=== PATIENT | female | born 1960 | race Caucasian/White ===

== ENCOUNTER 2017-06-30 21:58 | Emergency (ER) | payer MEDICAID ==
--- NOTE | 2017-06-30 22:53 | EDM.PDOC ---
ED HPI GENERAL MEDICAL PROBLEM - General Chief Complaint: Eye Problems Stated Complaint: RT EYE PROBLEMS, [id number] Time Seen by Provider: 06/30/17 22:49 Source of Information: Reports: Patient History Limitations: Reports: No Limitations - History of Present Illness INITIAL COMMENTS - FREE TEXT/NARRATIVE: c/o few days h/o seeing flashes in right eye and also things starting to look blurred. got really concerned after checking on internet saying it could be retinal detachment - Related Data Allergies Allergy/AdvReac Type Severity Reaction Status Date / Time latex Allergy Unknown ITCHING,SWELLING Verified 06/30/17 22:06 OF LEGS/FEET pollen extracts Allergy Unknown Other Verified 06/30/17 22:06 MOLD Allergy Unknown UNKNOWN Uncoded 06/30/17 22:06 Home Meds: Home Meds Losartan [Cozaar] 25 mg PO BID 11/25/14 [History] Metoprolol Tartrate 25 mg PO BID 01/10/16 [History] Simvastatin [Zocor] 20 mg PO DAILY 01/10/16 [History] Furosemide [Furosemide] 20 mg PO ASDIRECTED 06/30/17 [History] Omeprazole Magnesium [Prilosec Otc] 20 mg PO DAILY 06/30/17 [History] Past Medical History Cardiovascular History: Reports: High Cholesterol, Hypertension Other Cardiovascular History: edema Gastrointestinal History: Reports: Cholelithiasis, Diverticulosis, GERD Other Gastrointestinal History: umbilical hernia Genitourinary History: Reports: Renal Calculus VENEER SANDER History: Reports: Other (See Below) Other OB/BYN History: has ovarian cyst that pt states "MD is watching" - Past Surgical History GI Surgical History: Reports: Hernia Repair/Other Social & Family History - Family History Family Medical History: Noncontributory - Tobacco Use Smoking Status *Q: Never Smoker Second Hand Smoke Exposure: No - Alcohol Use Days Per Week of Alcohol Use: 0 - Recreational Drug Use Recreational Drug Use: No - Living Situation & Occupation Living situation: Reports: Occupation: Disabled ED ROS GENERAL - Review of Systems Review Of Systems: ROS reveals no pertinent complaints other than HPI. ED EXAM GENERAL W FULL EYE - Physical Exam Exam: See Below Exam Limited By: No Limitations General Appearance: Alert, WD/WN, Anxious, Mild Distress, Other (upset distraught) Visual Acuity (R) 20/: 50 Visual Acuity (L) 20/: 30 Eyelids: Bilateral: Normal Appearance Conjunctiva & Sclera: Bilateral: Normal Appearance Cornea Exam: Bilateral: Normal Appearance Extraocular Movements: Bilateral: Intact Pupillary Size: Bilateral: 4 mm Pupillary Reaction: Bilateral: Brisk Anterior Chamber: Bilateral: Normal Appearance Posterior Chamber: Bilateral: Other (pink fundus) Ears: Hearing Grossly Normal Throat/Mouth: Normal Voice, No Airway Compromise Head: Atraumatic Neck: Non-Tender, Full Range of Motion Respiratory/Chest: No Respiratory Distress Cardiovascular: Regular Rate, Rhythm GI/Abdominal: Soft, Non-Tender Neurological: Alert, Oriented, Normal Cognition, Normal Gait, No Motor/Sensory Deficits Psychiatric: Anxious Skin Exam: Warm, Dry, Normal Color Lymphatic: No Adenopathy Course - Vital Signs Last Recorded V/S: Last Vital Signs Temp 35.8 C 06/30/17 22:01 Pulse 86 06/30/17 22:01 Resp 18 06/30/17 22:01 BP 153/103 H 07/01/17 00:11 Pulse Ox 95 06/30/17 22:01 - Orders/Labs/Meds Labs: Laboratory Tests 06/30/17 06/30/17 Range/Units 22:55 22:55 WBC 8.2 (5.0-10.0) 10^3/uL RBC 4.85 (4.2-5.4) 10^6/uL Hgb 14.4 (12.0-16.0) g/dL Hct 43.8 (37.0-47.0) % MCV 90.3 (80-100) fL MCH 29.7 (27.0-34.0) pg MCHC 32.9 L (33.0-35.0) g/dL Plt Count 261 (150-450) 10^3/uL Neut % (Auto) 68.2 (42.2-75.2) % Lymph % (Auto) 23.5 (20.5-50.1) % [place] % (Auto) 6.8 (2-8) % Eos % (Auto) 1.1 (1.0-3.0) % Baso % (Auto) 0.4 (0.0-1.0) % Sodium 140 (135-145) mmol/L Potassium 3.7 (3.6-5.0) mmol/L Chloride 103 (101-111) mmol/L Carbon Dioxide 27.0 (21.0-31.0) mmol/L Anion Gap 13.7 BUN 12 (7-18) mg/dL Creatinine 1.2 (0.6-1.3) mg/dL Est Cr Clr Drug Dosing 55.36 mL/min Estimated GFR (MDRD) 47 BUN/Creatinine Ratio 10.00 Glucose 114 H (74-105) mg/dL Calcium 9.3 (8.4-10.2) mg/dl Total Bilirubin 0.4 (0.2-1.0) mg/dL AST 19 (10-42) IU/L ALT 27 (10-60) IU/L Alkaline Phosphatase 98 (42-121) IU/L Total Protein 7.7 (6.7-8.2) g/dl Albumin 3.8 (3.2-5.5) g/dl Globulin 3.9 Albumin/Globulin Ratio 0.97 Meds: Medications Discontinued Medications Generic Name Dose Route Start Last Admin Trade Name Freq PRN Reason Stop Dose Admin Clonidine HCl 0.1 mg 07/01/17 00:02 07/01/17 00:11 Catapres PO 07/01/17 00:03 0.1 mg ONETIME ONE Administration - Re-Assessments/Exams Free Text/Narrative Re-Assessment/Exam: 07/01/17 00:03 results discussed with pt who states she has been stressed out all day with having to put in a new kitchen floor. 07/01/17 00:38 ree-exam; s/p catapress = much better Departure - Departure Time of Disposition: 00:38 Disposition: Home, Self-Care 01 Clinical Impression: Hypertension Qualifiers: Hypertension type: unspecified Qualified Code(s): I10 - Essential (primary) hypertension - Discharge Information Instructions: Hypertension, [id number] Forms: ED Department Discharge Additional Instructions: 1) see Trina tomorrow 2) see EYE CLINIC tomorrow
[2017-07-01] MEDS ORDERED: cloNIDine 0.1 MG Tab PO ONE (00:02)
[2017-07-01 00:12] VITALS: BP 153/103
== END 2017-07-01 00:44 | disposition home or self-care (01) ==
LOC: DL.ED 21:58
DX: I10 Essential (primary) hypertension (principal); E78.00 Pure hypercholesterolemia, unspecified; Z91.040 Latex allergy status; Z79.899 Other long term (current) drug therapy
CPT/HCPCS: 36415; 70450; 80053; 85025; 99284; A9270

== ENCOUNTER 2018-11-01 00:46 | Emergency (ER) | payer MEDICARE, MEDICAID ==
[2018-11-01] MEDS ORDERED: Ondansetron 4 MG Tab.DIS PO ONE (01:01)
--- NOTE | 2018-11-01 01:04 | EDM.PDOC ---
ED HPI GENERAL MEDICAL PROBLEM - General Chief Complaint: Gastrointestinal Problem Stated Complaint: GALLBLADDER ATTACK [id number] Time Seen by Provider: 11/01/18 01:02 Source of Information: Reports: Patient History Limitations: Reports: No Limitations - History of Present Illness INITIAL COMMENTS - FREE TEXT/NARRATIVE: states has GB issues and been eating everything she shouldn't all day, then few hours ago started pain & nausea, no vomiting. pain better presently. Upper Abdomen Pain Score (Numeric/FACES): 7 - Related Data Allergies Allergy/AdvReac Type Severity Reaction Status Date / Time latex Allergy Unknown ITCHING,SWELLING Verified 11/01/18 01:01 OF LEGS/FEET pollen extracts Allergy Unknown Other Verified 11/01/18 01:01 MOLD Allergy Unknown UNKNOWN Uncoded 06/30/17 22:06 Home Meds: Home Meds Losartan [Cozaar] 25 mg PO BID 11/25/14 [History] Metoprolol Tartrate 25 mg PO BID 01/10/16 [History] Simvastatin [Zocor] 20 mg PO WEEKLY 01/10/16 [History] Furosemide 20 mg PO DAILY 06/30/17 [History] Omeprazole Magnesium [Prilosec Otc] 20 mg PO DAILY 06/30/17 [History] Calcitriol 0.25 mg PO DAILY 11/01/18 [History] Cetirizine [ZyrTEC] 10 mg PO DAILY 11/01/18 [History] Past Medical History Cardiovascular History: Reports: High Cholesterol, Hypertension Other Cardiovascular History: edema Gastrointestinal History: Reports: Cholelithiasis, Diverticulosis, GERD Other Gastrointestinal History: umbilical hernia Genitourinary History: Reports: Renal Calculus INDEPENDENT DISTRIBUTOR History: Reports: Other (See Below) Other INDEPENDENT DISTRIBUTOR History: has ovarian cyst that pt states "MD is watching" - Past Surgical History GI Surgical History: Reports: Hernia Repair/Other Social & Family History - Family History Family Medical History: Noncontributory - Living Situation & Occupation Living situation: Reports: Occupation: Disabled ED ROS GENERAL - Review of Systems Review Of Systems: ROS reveals no pertinent complaints other than HPI. ED EXAM, GI/ABD - Physical Exam Exam: See Below Exam Limited By: No Limitations General Appearance: Alert, WD/WN, Mild Distress, Other (discomfort). No: Active Emesis Ears: Hearing Grossly Normal Throat/Mouth: Normal Voice, No Airway Compromise Head: Atraumatic Neck: Non-Tender, Full Range of Motion Respiratory/Chest: No Respiratory Distress Cardiovascular: Regular Rate, Rhythm GI/Abdominal Exam: Tender, Other (mild RUQ). No: Distended, Guarding, Rigid, Rebound (Female) Exam: Normal External Exam (RUQ discomfort, BS hyper) Neurological: Alert, Oriented, Normal Cognition, Normal Gait, No Motor/Sensory Deficits Psychiatric: Flat Affect Skin Exam: Warm, Dry, Normal Color Lymphatic: No Adenopathy Course - Vital Signs Last Recorded V/S: Last Vital Signs Temp 35.8 C 11/01/18 01:09 Pulse 90 11/01/18 01:09 Resp 20 11/01/18 01:09 BP 163/115 H 11/01/18 01:09 Pulse Ox 98 11/01/18 01:09 - Orders/Labs/Meds Labs: Laboratory Tests 11/01/18 11/01/18 Range/Units 01:10 01:10 WBC 12.0 H (5.0-10.0) 10^3/uL RBC 4.50 (4.2-5.4) 10^6/uL Hgb 13.4 (12.0-16.0) g/dL Hct 41.2 (37.0-47.0) % MCV 91.6 (80-100) fL MCH 29.8 (27.0-34.0) pg MCHC 32.5 L (33.0-35.0) g/dL Plt Count 253 (150-450) 10^3/uL Neut % (Auto) 83.7 H (42.2-75.2) % Lymph % (Auto) 9.8 L (20.5-50.1) % [place] % (Auto) 5.8 (2-8) % Eos % (Auto) 0.4 L (1.0-3.0) % Baso % (Auto) 0.3 (0.0-1.0) % Sodium 140 (135-145) mmol/L Potassium 4.0 (3.6-5.0) mmol/L Chloride 106 (101-111) mmol/L Carbon Dioxide 23.0 (21.0-31.0) mmol/L Anion Gap 15.0 BUN 11 (7-18) mg/dL Creatinine 1.1 (0.6-1.3) mg/dL Est Cr Clr Drug Dosing 58.97 mL/min Estimated GFR (MDRD) 51 BUN/Creatinine Ratio 10.00 Glucose 133 H (74-105) mg/dL Calcium 9.0 (8.4-10.2) mg/dl Total Bilirubin 0.4 (0.2-1.0) mg/dL AST 24 (10-42) IU/L ALT 34 (10-60) IU/L Alkaline Phosphatase 94 (42-121) IU/L Total Protein 7.5 (6.7-8.2) g/dl Albumin 3.6 (3.2-5.5) g/dl Globulin 3.9 Albumin/Globulin Ratio 0.92 Amylase 37 (28-100) U/L Lipase 43 (22-51) U/L Meds: Medications Discontinued Medications Generic Name Dose Route Start Last Admin Trade Name Freq PRN Reason Stop Dose Admin Ondansetron HCl 4 mg 11/01/18 01:01 11/01/18 01:06 Zofran Odt PO 11/01/18 01:02 4 mg ONETIME ONE Administration - Re-Assessments/Exams Free Text/Narrative Re-Assessment/Exam: 11/01/18 01:55 results discussed with pt who states did see surgeon who rec' loosing weight first to decrease complications. Departure - Departure Time of Disposition: 01:56 Disposition: Home, Self-Care 01 Condition: Good Clinical Impression: Cholelithiasis without obstruction - Discharge Information Forms: ED Department Discharge Additional Instructions: 1) avoid fatty, oily, fried foods 2) follow up at clinic
[2018-11-01 01:13] VITALS: BP 163/115
== END 2018-11-01 02:03 | disposition home or self-care (01) ==
LOC: DL.ED 00:46
DX: K80.20 Calculus of gallbladder without cholecystitis without obstruction (principal); K21.9 Gastro-esophageal reflux disease without esophagitis; I10 Essential (primary) hypertension; Z91.040 Latex allergy status; Z88.8 Allergy status to other drugs, medicaments and biological substances; Z79.899 Other long term (current) drug therapy
CPT/HCPCS: 36415; 80053; 82150; 83690; 85025; 99283; A9270

== ENCOUNTER 2019-06-12 05:06 | Emergency (ER) | payer MEDICARE, MEDICAID ==
[2019-06-12 05:19] VITALS: BP 143/102; PULSE 129
[2019-06-12] MEDS ORDERED: Ondansetron 4 MG/2 ML SDV IV ONE (05:21)
[2019-06-12] MEDS ORDERED: Sodium Chloride 0.9% 1,000 ML IV ONE (05:21)
--- NOTE | 2019-06-12 05:25 | EDM.PDOC ---
ED HPI GENERAL MEDICAL PROBLEM - General Chief Complaint: Gastrointestinal Problem Stated Complaint: FLU Time Seen by Provider: 06/12/19 05:22 Source of Information: Reports: Patient History Limitations: Reports: No Limitations - History of Present Illness INITIAL COMMENTS - FREE TEXT/NARRATIVE: c/o vomiting diarrhoea body aches and feels hot. - Related Data Allergies Allergy/AdvReac Type Severity Reaction Status Date / Time latex Allergy Unknown ITCHING,SWELLING Verified 06/12/19 05:10 OF LEGS/FEET pollen extracts Allergy Unknown Other Verified 06/12/19 05:10 MOLD Allergy Unknown UNKNOWN Uncoded 06/12/19 05:10 Home Meds: Home Meds Losartan [Cozaar] 25 mg PO BID 11/25/14 [History] Metoprolol Tartrate 25 mg PO BID 01/10/16 [History] Simvastatin [Zocor] 20 mg PO WEEKLY 01/10/16 [History] Furosemide 20 mg PO DAILY 06/30/17 [History] Omeprazole Magnesium [Prilosec Otc] 20 mg PO DAILY 06/30/17 [History] Cetirizine [ZyrTEC] 10 mg PO DAILY 11/01/18 [History] calcitrioL [Calcitriol] 0.25 mg PO DAILY 11/01/18 [History] Past Medical History - Past Health History Medical/Surgical History: Denies Medical/Surgical History Cardiovascular History: Reports: High Cholesterol, Hypertension Other Cardiovascular History: edema Gastrointestinal History: Reports: Cholelithiasis, Diverticulosis, GERD Other Gastrointestinal History: umbilical hernia Genitourinary History: Reports: Renal Calculus, Renal Disease Other Genitourinary History: Stage III SPECIALTY DEPARTMENT SUPERVISOR History: Reports: Other (See Below) Other SPECIALTY DEPARTMENT SUPERVISOR History: has ovarian cyst that pt states "MD is watching" Endocrine/Metabolic History: Reports: Obesity/BMI 30+ - Past Surgical History GI Surgical History: Reports: Hernia Repair/Other Social & Family History - Family History Family Medical History: Noncontributory - Tobacco Use Smoking Status *Q: Never Smoker Second Hand Smoke Exposure: No - Caffeine Use Caffeine Use: Reports: Coffee, Soda - Recreational Drug Use Recreational Drug Use: No - Living Situation & Occupation Living situation: Reports: Occupation: Disabled ED ROS GENERAL - Review of Systems Review Of Systems: Comprehensive ROS is negative, except as noted in HPI. ED EXAM, GI/ABD - Physical Exam Exam: See Below Exam Limited By: No Limitations General Appearance: Alert, WD/WN, Mild Distress, Other (discomfort). No: Active Emesis Ears: Hearing Grossly Normal Throat/Mouth: Normal Voice, No Airway Compromise Head: Atraumatic Neck: Non-Tender, Full Range of Motion Respiratory/Chest: No Respiratory Distress Cardiovascular: Regular Rate, Rhythm GI/Abdominal Exam: Tender, Other (epiG region, BS hyper). No: Distended, Guarding, Rigid, Rebound Neurological: Alert, Oriented, Normal Cognition, Normal Gait, No Motor/Sensory Deficits Psychiatric: Flat Affect, Tearful Skin Exam: Warm, Dry, Normal Color Lymphatic: No Adenopathy Course - Vital Signs Last Recorded V/S: Last Vital Signs Temp 35.9 C 06/12/19 05:13 Pulse 129 H 06/12/19 05:13 Resp 16 06/12/19 05:13 BP 143/102 H 06/12/19 05:13 Pulse Ox 95 06/12/19 05:13 - Orders/Labs/Meds Labs: Laboratory Tests 06/12/19 06/12/19 Range/Units 05:20 05:20 WBC 14.9 H (5.0-10.0) 10^3/uL RBC 5.30 (4.2-5.4) 10^6/uL Hgb 15.6 D (12.0-16.0) g/dL Hct 47.2 H (37.0-47.0) % MCV 89.1 (80-100) fL MCH 29.4 (27.0-34.0) pg MCHC 33.1 (33.0-35.0) g/dL Plt Count 290 (150-450) 10^3/uL Neut % (Auto) 91.9 H (42.2-75.2) % Lymph % (Auto) 2.9 L (20.5-50.1) % [place] % (Auto) 4.8 (2-8) % Eos % (Auto) 0.3 L (1.0-3.0) % Baso % (Auto) 0.1 (0.0-1.0) % Sodium 138 (135-145) mmol/L Potassium 4.0 (3.6-5.0) mmol/L Chloride 106 (101-111) mmol/L Carbon Dioxide 21.0 (21.0-31.0) mmol/L Anion Gap 15.0 BUN 17 (7-18) mg/dL Creatinine 1.2 (0.6-1.3) mg/dL Est Cr Clr Drug Dosing 54.05 mL/min Estimated GFR (MDRD) 46 BUN/Creatinine Ratio 14.16 Glucose 154 H (74-105) mg/dL Calcium 9.0 (8.4-10.2) mg/dl Total Bilirubin 0.8 (0.2-1.0) mg/dL AST 23 (10-42) IU/L ALT 31 (10-60) IU/L Alkaline Phosphatase 88 (42-121) IU/L Total Protein 8.1 (6.7-8.2) g/dl Albumin 3.9 (3.2-5.5) g/dl Globulin 4.2 Albumin/Globulin Ratio 0.93 Meds: Medications Discontinued Medications Generic Name Dose Route Start Last Admin Trade Name Freq PRN Reason Stop Dose Admin Acetaminophen 650 mg 06/12/19 06:04 06/12/19 06:08 Tylenol PO 06/12/19 06:05 650 mg NOW ONE Administration Sodium Chloride 1,000 mls @ 999 mls/hr 06/12/19 05:21 06/12/19 05:27 Normal Saline IV 06/12/19 06:21 999 mls/hr .BOLUS ONE Administration Ondansetron HCl 4 mg 06/12/19 05:21 06/12/19 05:28 Zofran IV 06/12/19 05:22 4 mg ONETIME ONE Administration - Re-Assessments/Exams Free Text/Narrative Re-Assessment/Exam: 06/12/19 06:05 results discussed with pt who is feeling better s/p IV Departure - Departure Time of Disposition: 06:30 Disposition: Home, Self-Care 01 Condition: Good Clinical Impression: Flu syndrome - Discharge Information Instructions: Influenza, Adult, [id number] Forms: ED Department Discharge Additional Instructions: 1) rest as much as possible 2) drink lots of liquids 3) take tylenol for fever and body aches 4) follow up at clinic Sepsis Event Note - Evaluation Sepsis Screening Result: No Definite Risk - Focused Exam Date Exam was Performed: 06/12/19 Time Exam was Performed: 19:14
[2019-06-12] MEDS ORDERED: Acetaminophen 325 MG Tab PO ONE (06:04)
== END 2019-06-12 06:30 | disposition home or self-care (01) ==
LOC: DL.ED 05:06
DX: J11.1 Influenza due to unidentified influenza virus with other respiratory manifestations (principal)
CPT/HCPCS: 36415; 80053; 85025; 87804; 96361; 96374; 99284; A9270; J2405; J7030

== ENCOUNTER 2020-10-11 05:25 | Emergency (ER) | payer MEDICARE, MEDICAID ==
[2020-10-11 05:42] VITALS: BP 168/127; PULSE 131
[2020-10-11] MEDS ORDERED: Sodium Chloride 0.9% 1,000 ML IV ONE (05:51)
[2020-10-11] MEDS ORDERED: Ondansetron 4 MG/2 ML SDV IVPUSH ONE (05:51)
[2020-10-11 06:10] LABS: ANION GAP 17.6 mEq/L (7-13)
--- NOTE | 2020-10-11 06:42 | EDM.PDOC ---
<Radha Agrawal - Last Filed: 10/11/20 06:49> ED HPI GENERAL MEDICAL PROBLEM - General Chief Complaint: Gastrointestinal Problem Stated Complaint: NAUSEA,VOMITING Time Seen by Provider: 10/11/20 06:00 Source of Information: Reports: Patient, RN History Limitations: Reports: No Limitations - History of Present Illness INITIAL COMMENTS - FREE TEXT/NARRATIVE: ED with c/o Nausea vomiting and diarrhea since last mauricio, emesis x 1 dry heave, and 5-10 loose watery stools, abdominal cramping. No fever or chills Abdomen Pain Score (Numeric/FACES): 6 - Related Data Allergies Allergy/AdvReac Type Severity Reaction Status Date / Time latex Allergy Unknown ITCHING,SWELLING Verified 10/11/20 05:43 OF LEGS/FEET pollen extracts Allergy Unknown Other Verified 10/11/20 05:43 MOLD Allergy Unknown UNKNOWN Uncoded 10/11/20 05:43 Home Meds: Home Meds Losartan [Cozaar] 25 mg PO BID 11/25/14 [History] Metoprolol Tartrate 25 mg PO BID 01/10/16 [History] Simvastatin [Zocor] 20 mg PO WEEKLY 01/10/16 [History] Furosemide 20 mg PO DAILY 06/30/17 [History] Omeprazole Magnesium [Prilosec Otc] 20 mg PO DAILY 06/30/17 [History] Cetirizine [ZyrTEC] 10 mg PO DAILY 11/01/18 [History] calcitrioL [Calcitriol] 0.25 mg PO DAILY 11/01/18 [History] Past Medical History - Past Health History Medical/Surgical History: Denies Medical/Surgical History Cardiovascular History: Reports: High Cholesterol, Hypertension Other Cardiovascular History: edema Gastrointestinal History: Reports: Cholelithiasis, Diverticulosis, GERD Other Gastrointestinal History: umbilical hernia Genitourinary History: Reports: Renal Calculus, Renal Disease Other Genitourinary History: Stage III 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: Other (See Below) Other PATHOLOGY LAB TECHNICIAN History: has ovarian cyst that pt states "MD is watching" Endocrine/Metabolic History: Reports: Obesity/BMI 30+ - Past Surgical History GI Surgical History: Reports: Hernia Repair/Other Social & Family History - Family History Family Medical History: No Pertinent Family History - Tobacco Use Tobacco Use Status *Q: Former Tobacco User Used Tobacco, but Quit: Yes Month/Year Tobacco Last Used: on and off,unknown time frame per patient - Caffeine Use Caffeine Use: Reports: Coffee, Soda - Living Situation & Occupation Living situation: Reports: Occupation: Disabled ED ROS GENERAL - Review of Systems Review Of Systems: Comprehensive ROS is negative, except as noted in HPI. ED EXAM, GI/ABD - Physical Exam Exam: See Below Exam Limited By: No Limitations General Appearance: Alert, Mild Distress, Obese (morbid) Eyes: Bilateral: EOMI Ears: Normal External Exam Nose: Normal Inspection Throat/Mouth: Normal Inspection Head: Atraumatic, Normocephalic Neck: Normal Inspection Respiratory/Chest: No Respiratory Distress, Lungs Clear, Normal Breath Sounds Cardiovascular: Regular Rate, Rhythm, Tachycardia GI/Abdominal Exam: Soft, Tender, Abnormal Bowel Sounds (hyperactive) Extremities: Normal Inspection Neurological: Alert, Oriented Psychiatric: Anxious Skin Exam: Warm, Dry, Intact, Pallor #1 Interpretation EKG Date: 10/11/20 Time: 05:54 Rhythm: NSR Rate (Beats/Min): 125 [place]: Normal P-Wave: Present QRS: Normal QT: Normal Comparison: NA - No Prior EKG Departure - Departure Disposition: Home, Self-Care 01 Clinical Impression: Gastroenteritis - Discharge Information Instructions: Viral Gastroenteritis, Adult, Arfp-[id number], Dehydration, Adult, Huec-[id number]-Pzss, Nausea and Vomiting, Adult, Ywhk-[id number], Food Choices to Help Relieve Diarrhea, Adult Forms: ED Department Discharge Additional Instructions: Drink small amounts of gatorade and/or water frequently May use imodium as directed for diarrhea RX: [place] as directed for nausea/vomiting Follow up with your primary care facility next week Sepsis Event Note (ED) - Evaluation Sepsis Screening Result: No Definite Risk <Charlene Hyatt - Last Filed: 10/11/20 09:15> Course - Vital Signs Last Recorded V/S: Last Vital Signs Temp 95.8 F L 10/11/20 05:36 Pulse 131 H 10/11/20 05:36 Resp 20 10/11/20 05:36 BP 168/127 H 10/11/20 05:36 Pulse Ox 98 10/11/20 05:36 - Orders/Labs/Meds Orders: Active Orders 24 hr Category Date Time Status EKG 12 Lead [EKG Documentation Completion] [RC] URGENT Care 10/11/20 05:53 Active CLOSTRIDIUM DIFFICILE TOX RFLX [MREF] Stat Lab 10/11/20 05:46 Ordered CULTURE BLOOD [BC] Stat Lab 10/11/20 06:05 Received CULTURE STOOL [RM] Stat Lab 10/11/20 05:46 Ordered Isolation [COMM] Stat Oth 10/11/20 05:50 Active Labs: Laboratory Tests 10/11/20 10/11/20 10/11/20 Range/Units 05:44 05:44 05:44 WBC 15.1 H (5.0-10.0) 10^3/uL RBC 5.85 H (4.2-5.4) 10^6/uL Hgb 17.1 H D (12.0-16.0) g/dL Hct 51.8 H (37.0-47.0) % MCV 88.5 (80-100) fL MCH 29.2 (27.0-34.0) pg MCHC 33.0 (33.0-35.0) g/dL Plt Count 315 (150-450) 10^3/uL Neut % (Auto) 86.7 H (42.2-75.2) % Lymph % (Auto) 6.4 L (20.5-50.1) % [place] % (Auto) 6.4 (2-8) % Eos % (Auto) 0.3 L (1.0-3.0) % Baso % (Auto) 0.2 (0.0-1.0) % Sodium 137 (136-145) mmol/L Potassium 3.6 (3.5-5.1) mmol/L Chloride 102 (98-107) mmol/L Carbon Dioxide 21 (21-32) mmol/L Anion Gap 17.6 H (7-13) mEq/L BUN 12 (7-18) mg/dL Creatinine 1.52 H (0.55-1.02) mg/dL Est Cr Clr Drug Dosing 42.16 mL/min Estimated GFR (MDRD) 35 BUN/Creatinine Ratio 7.9 (No establ ref range) Glucose 181 H (70-99) mg/dL Lactic Acid 1.8 (0.4-2.0) mmol/L Calcium 9.3 (8.5-10.1) mg/dL Magnesium 1.8 (1.8-2.4) mg/dL Total Bilirubin 0.6 (0.2-1.0) mg/dL AST 16 (15-37) U/L ALT 34 (14-59) U/L Alkaline Phosphatase 113 (46-116) U/L Total Protein 8.4 H (6.4-8.2) g/dL Albumin 3.6 (3.4-5.0) g/dL Globulin 4.8 Albumin/Globulin Ratio 0.8 Amylase 24 L (25-115) U/L Lipase 71 L (73-393) U/L Influenza Type A RNA (NEGATIVE) Influenza Type B RNA (NEGATIVE) SARS-CoV-2 RNA (DAVID) (NEGATIVE) 10/11/20 Range/Units 07:48 WBC (5.0-10.0) 10^3/uL RBC (4.2-5.4) 10^6/uL Hgb (12.0-16.0) g/dL Hct (37.0-47.0) % MCV (80-100) fL MCH (27.0-34.0) pg MCHC (33.0-35.0) g/dL Plt Count (150-450) 10^3/uL Neut % (Auto) (42.2-75.2) % Lymph % (Auto) (20.5-50.1) % [place] % (Auto) (2-8) % Eos % (Auto) (1.0-3.0) % Baso % (Auto) (0.0-1.0) % Sodium (136-145) mmol/L Potassium (3.5-5.1) mmol/L Chloride (98-107) mmol/L Carbon Dioxide (21-32) mmol/L Anion Gap (7-13) mEq/L BUN (7-18) mg/dL Creatinine (0.55-1.02) mg/dL Est Cr Clr Drug Dosing mL/min Estimated GFR (MDRD) BUN/Creatinine Ratio (No establ ref range) Glucose (70-99) mg/dL Lactic Acid (0.4-2.0) mmol/L Calcium (8.5-10.1) mg/dL Magnesium (1.8-2.4) mg/dL Total Bilirubin (0.2-1.0) mg/dL AST (15-37) U/L ALT (14-59) U/L Alkaline Phosphatase (46-116) U/L Total Protein (6.4-8.2) g/dL Albumin (3.4-5.0) g/dL Globulin Albumin/Globulin Ratio Amylase (25-115) U/L Lipase (73-393) U/L Influenza Type A RNA Negative (NEGATIVE) Influenza Type B RNA Negative (NEGATIVE) SARS-CoV-2 RNA (DAVID) Negative (NEGATIVE) Meds: Medications Discontinued Medications Generic Name Dose Route Start Last Admin Trade Name Freq PRN Reason Stop Dose Admin Sodium Chloride 1,000 mls @ 500 mls/hr 10/11/20 05:51 10/11/20 06:28 Normal Saline IV 10/11/20 07:50 500 mls/hr .BOLUS ONE Administration Ondansetron HCl 4 mg 10/11/20 05:51 10/11/20 06:28 Ondansetron 4 Mg/2 Ml Sdv IVPUSH 10/11/20 05:52 4 mg ONETIME ONE Administration Ondansetron HCl 4 mg 10/11/20 09:07 Ondansetron 4 Mg/2 Ml Sdv IV 10/11/20 09:08 ONETIME ONE Departure - Departure Time of Disposition: 09:14 Condition: Fair - Discharge Information *PRESCRIPTION DRUG MONITORING PROGRAM REVIEWED*: No *COPY OF PRESCRIPTION DRUG MONITORING REPORT IN PATIENT DANUTA: No Sepsis Event Note (ED) - Focused Exam Vital Signs: Vital Signs Temp Pulse Resp BP Pulse Ox 10/11/20 05:36 95.8 F L 131 H 20 168/127 H 98
[2020-10-11 08:30] LABS: CORONAVIRUS COVID-19 NAA NEGATIVE (NEGATIVE)
[2020-10-11] MEDS ORDERED: Ondansetron 4 MG/2 ML SDV IV ONE (09:07)
== END 2020-10-11 09:30 | disposition home or self-care (01) ==
LOC: DL.ED 05:25
DX: K52.9 Noninfective gastroenteritis and colitis, unspecified (principal); E78.00 Pure hypercholesterolemia, unspecified; I10 Essential (primary) hypertension; K21.9 Gastro-esophageal reflux disease without esophagitis; E66.9 Obesity, unspecified; Z87.891 Personal history of nicotine dependence; Z91.040 Latex allergy status; Z91.018 Allergy to other foods; Z20.822 Contact with and (suspected) exposure to COVID-19; Z68.42 Body mass index [BMI] 45.0-49.9, adult
CPT/HCPCS: 0240U; 36415; 80053; 82150; 83605; 83690; 83735; 85025; 87040; 93005; 93010; 96374; 96376; 99283; 99284; J2405; J7030

== ENCOUNTER 2023-04-25 17:45 | Emergency (ER) | payer MEDICARE, MEDICAID ==
[2023-04-25 18:51] LABS: INFLUENZA A NAA NEGATIVE (NEGATIVE); INFLUENZA B NAA NEGATIVE (NEGATIVE); RESPIRATORY SYNCYTIAL VIR NAA NEGATIVE (NEGATIVE)
[2023-04-25 18:53] LABS: CORONAVIRUS COVID-19 NAA POSITIVE (NEGATIVE)
[2023-04-25 20:11] VITALS: BP 135/87; PULSE 78
== END 2023-04-25 20:09 | disposition home or self-care (01) ==
LOC: DL.ED 17:45
DX: U07.1 COVID-19 (principal); J12.82 Pneumonia due to coronavirus disease 2019; E66.01 Morbid (severe) obesity due to excess calories; Z28.310 Unvaccinated for COVID-19; I12.9 Hypertensive chronic kidney disease with stage 1 through stage 4 chronic kidney disease, or unspecified chronic kidney disease; N18.30 Chronic kidney disease, stage 3 unspecified; J45.909 Unspecified asthma, uncomplicated; K21.9 Gastro-esophageal reflux disease without esophagitis; Z87.891 Personal history of nicotine dependence; Z79.899 Other long term (current) drug therapy; Z91.040 Latex allergy status; Z91.048 Other nonmedicinal substance allergy status; Z68.43 Body mass index [BMI] 50.0-59.9, adult
CPT/HCPCS: 0241U; 99284

== ENCOUNTER 2025-04-26 06:30 | Day surgery (SDC) | payer MEDICARE, MEDICAID ==
[~2025-04-26 06:30] MED LIST: Ondansetron 4 MG/2 ML SDV IVPUSH PRN
[2025-04-26] MEDS ORDERED: Midazolam 1 MG/ML 2 ML SDV IV ONE (06:31)
[2025-04-26] MEDS ORDERED: Dexamethasone 4 MG/ML SDV IV ONE (06:31)
[2025-04-26] MEDS ORDERED: Sodium Chloride 0.9% 10 ML Syringe IV ONE (06:31)
[2025-04-26] MEDS: Moxifloxacin 0.5% Ophth Soln 3 ML Bottle EYELF ONE (07:17)
[2025-04-26] MEDS: Povidone-Iodine 5% Sterile Ophth Soln 30 ML Bottle EYELF ONE ×2 (07:18→08:29)
[2025-04-26] MEDS: Phenylephrine 10% Ophth Soln 5 ML Bot EYELF ONE (07:19)
[2025-04-26] MEDS: Timolol Maleate 0.5% Ophth Soln 5 ML Bottle EYELF ONE (07:20)
[2025-04-26] MEDS: Cataract Ophth Solution EYELF ONE (07:22)
[2025-04-26] MEDS ORDERED: Dexamethasone 4 MG/ML SDV ONE (08:28)
[2025-04-26] MEDS: Apraclonidine 0.5% Ophth Soln 5 ML Bot EYELF ONE (08:29)
[2025-04-26] MEDS: Dexamethasone/Neomycin/Polymyxin B Ophth Oint 3.5 GM Tube EYELF ONE (08:30)
[2025-04-26] MEDS: Diclofenac Sodium 0.1% Ophth Soln 5 ML Bottle EYELF ONE (08:30)
[2025-04-26 09:07] VITALS: BP 123/89; PULSE 82
== END 2025-04-26 09:15 | disposition home or self-care (01) ==
LOC: DL.SDS 06:30
PROVIDERS: ATTEND Ophthalmology
DX: E11.36 Type 2 diabetes mellitus with diabetic cataract (principal); H25.813 Combined forms of age-related cataract, bilateral; I12.9 Hypertensive chronic kidney disease with stage 1 through stage 4 chronic kidney disease, or unspecified chronic kidney disease; E11.22 Type 2 diabetes mellitus with diabetic chronic kidney disease; N18.9 Chronic kidney disease, unspecified; E66.9 Obesity, unspecified; Z91.09 Other allergy status, other than to drugs and biological substances; Z87.891 Personal history of nicotine dependence; Z79.899 Other long term (current) drug therapy; Z91.040 Latex allergy status; Z68.42 Body mass index [BMI] 45.0-49.9, adult
CPT/HCPCS: A9270-GY; J1100; J2003; J2250; J3373; J3490

== ENCOUNTER → 2025-05-10 | Day surgery (SDC) | payer MEDICARE, MEDICAID ==
[~2025-05-10] MED LIST changes: +Moxifloxacin 0.5% Ophth Soln 3 ML Bottle EYERT ONE
[2025-05-10] MEDS: Povidone-Iodine 5% Sterile Ophth Soln 30 ML Bottle EYERT ONE (07:11)
[2025-05-10] MEDS: Phenylephrine 10% Ophth Soln 5 ML Bot EYERT ONE (07:15)
[2025-05-10] MEDS: Timolol Maleate 0.5% Ophth Soln 5 ML Bottle EYERT ONE (07:16)
[2025-05-10] MEDS: Cataract Ophth Solution EYERT ONE (07:17)
[2025-05-10] MEDS: Moxifloxacin 0.5% Ophth Soln 3 ML Bottle EYERT ONE (07:29)
[2025-05-10 09:18] VITALS: BP 133/79; PULSE 77
== END | disposition home or self-care (01) ==
LOC: DL.SDS 06:20
PROVIDERS: ATTEND Ophthalmology
DX: E11.36 Type 2 diabetes mellitus with diabetic cataract (principal); H25.811 Combined forms of age-related cataract, right eye; E66.9 Obesity, unspecified; I12.9 Hypertensive chronic kidney disease with stage 1 through stage 4 chronic kidney disease, or unspecified chronic kidney disease; N18.9 Chronic kidney disease, unspecified; Z87.891 Personal history of nicotine dependence; Z79.899 Other long term (current) drug therapy; Z91.040 Latex allergy status
CPT/HCPCS: 66984; A9270